=== PATIENT | male | born 1980 | race Caucasian/White ===

== ENCOUNTER 2017-10-08 18:17 | Emergency (ER) | payer MEDICARE, SELFPAY ==
[2017-10-08 18:18] VITALS: BP 145/89; PULSE 96; RESP 18; TEMP 36; O2SAT 94; BMI 38.2
--- NOTE | 2017-10-08 18:50 | ED.VISSUMM ---
- ER Visit Summary Date of Service: 10/08/17 Chief Complaint: [] History of Present Illness: The patient is a 37 M [back pain presents with back pain that started 5 days ago. Patient states that he was seeing a psychiatrist at the [facility] when he noticed some soreness in his low back that progressively worsened. Patient then had pain, radiating into both hips. Patient denies any trauma. Patient does have a history of some chronic back pain issues and his last MRI was about 3 years ago showed some herniated disks as well as spinal stenosis and degenerative disc disease. Patient has an appointment on the of this month to follow-up with CT rail car painter/sandblaster. Patient is never had surgery on his back. Patient denies any loss of bowel or bladder function. He denies any weakness in the extremities. He denies any pain radiating down the legs. Patient has not had any trauma to his back.] Physical Examination: [HEENT-PERRLA, EOMI. Cranial nerves II through XII grossly intact. TMs clear. Mucous membranes moist. No adenopathy. Cardiovascular-regular rate and rhythm without murmur or ectopy Lungs-clear to auscultation, chest wall stable without crepitus or subcu emphysema Abdomen-normoactive bowel sounds, soft, nontender, no rebound or rigidity, no peritoneal signs. Back exam-patient has tenderness palpation over the lumbar spine diffusely. Patient has negative straight leg raises. Deep tendon reflexes are plus out of 4 bilaterally at the patella and Achilles. Patient has normal L5 extension. Patient has normal sensation to light touch. Extremities-intact ?4, normal range of motion, normal pulses, atraumatic] Test Results: [None indicated] Emergency Department Course and Treatment: [Patient is driving therefore he was not medicated here] Treatment Plan: [Patient will be given a prescription for [place] and advised to keep his appointment with his rail car painter/sandblaster] Disposition: [Discharged home in stable condition] Impression: [Back pain-acute on chronic] This note was generated with [employer] dictation software. It may contain incorrect words, spelling, and punctuation that were not noted in review of the chart prior to signing ED Disposition - Plan for ED Patient: Chief Complaint: Back [facility]errals: [facility] [Primary Care Provider] -
--- NOTE | 2017-10-08 18:52 | ED.DEP ---
ED Disposition - Plan for ED Patient: Chief Complaint: Back Instructions: ED Neck Back Pain General Prescriptions: Hydrocodone/Acetaminophen [[place] 5-325 Tablet] 1 - 2 ea PO 4X/DAY PRN PRN 5 Days #20 tab PRN Reason: Pain Cyclobenzaprine [Flexeril] 10 mg PO TID PRN #20 tab PRN Reason: Muscle Spasm Referrals: [facility] [Primary Care Provider] - 5-7 Days
[2017-10-08 19:35] VITALS: BP 145/77; PULSE 62; RESP 15; O2SAT 98
== END 2017-10-08 19:36 | disposition home or self-care (01) ==
LOC: ED 19:10
PROVIDERS: Emergency Provider Emergency Medicine
DX: M54.5 Low back pain (principal); G89.29 Other chronic pain; M51.36 Other intervertebral disc degeneration, lumbar region; M48.061 Spinal stenosis, lumbar region without neurogenic claudication
CPT/HCPCS: 99282

== ENCOUNTER 2018-01-24 10:30 | Outpatient (RCR) | payer OTHER, MEDICARE, SELFPAY ==
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
--- NOTE | 2018-01-09 12:07 | HP.PTREVAL ---
MABLE GREGORY, It has been my pleasure to treat EBER MICHAEL over the last 9 visits for LBP. Please see the progress note below for an update on the physical therapy plan of care! Subjective: Not hurting. Feeling good. Sees chirpractor once per week. Stiffness in LB on daily basis not described as pain. Pool helps. Wants to progress to land based machine workout if approved. Objective/Function: Good AROM L/S, min limited in all directions and no pain today.. Walks well without deviations. SIGNIFICANTLY BETTER, APPROPRIATE TO CONTINUE FOR 2-3 WEEKS TO TEACH LAND BASED STRENGTHENING PATIENT DESIRES TO HELP MAINTAIN IMPROVEMENTS. Plan Plan: 2x/week for 2-4 weeks to teach machine based general and core strength and calorie burn without back pain and progress to I with list so patient can continue via [employer]. Goals Goal 1:: I approp HEP in pool to help minimize future problems Goal Time Frame: 4-6 Weeks Goal Progress: Goal Met Goal 2:: Pt feel 100% back to normal after recent LB flare up Goal Time Frame: 4-6 Weeks Goal Progress: Goal Met Goal 3:: Pt I with appropriate land based ex for general back health to minimize future problems. Goal Time Frame: 2-4 Weeks Goal Progress: NEW GOAL Anticipated Interventions Patient/Client Instruction: Educate patient on: Condition, Plan of Care For the Purpose of:: To decrease pain, To increase tolerance to activity/condition/position Therapeutic Exercise to Include: Strength training, Flexibilty training, In an aquatic setting, Dynamic Lumbar Stabilization For the Purpose of:: To increase tolerance to activity/condition/position Please do not hesitate to contact me at [phone] by phone or if you have questions or concerns regarding this new plan of care! Sincerely, Elian Jaime, DPT, OC
--- NOTE | 2018-03-14 13:38 | HP.PT.NRP ---
HP - Discharge Summary (1) - Patient Information EBER MICHAEL was seen in my office for initial evaluation on 12/09/17. The following Plan of Care was established for this patient: Initial Frequency: 2x /Week Initial Duration: 4 Weeks - Anticipated Interventions Patient/Client Instruction: Educate patient on: Condition, Plan of Care For the Purpose of:: To decrease pain, To increase tolerance to activity/condition/position Therapeutic Exercise to Include: Strength training, Flexibilty training, In an aquatic setting, Dynamic Lumbar Stabilization For the Purpose of:: To increase tolerance to activity/condition/position This patient was last seen in our office 01/24/18. Pertinent comments regarding their Physical therapy will appear below: Pt seen 10 visits of POC in pool and starting land therapy. He was to continue another 3 weeks but did not schedule or attend. I will discontinue at this time due to nonattendance as it has been over a month. At this point I will be discontinuing this patient from physical therapy. I would be happy to see this patient again in the future if found appropriate by the physician. Thank you! Elian Jaime, DPT, OCS, CSCS
== END 2018-01-24 19:00 | disposition home or self-care (01) ==
LOC: PT 10:30
DX: M54.5 Low back pain (principal)
CPT/HCPCS: 97110; 97113; 97162; 97530; G8978; G8979

== ENCOUNTER 2018-04-14 19:28 | Emergency (ER) | payer MEDICARE, SELFPAY ==
[2018-04-14 19:29] VITALS: BP 131/83; PULSE 97; RESP 20; TEMP 36.7; O2SAT 98; BMI 38.8
--- NOTE | 2018-04-14 19:32 | ED.RN ---
NO OLD EKGS IN MUSE
--- NOTE | 2018-04-14 19:37 | EKG12_ITS ---
Test Reason : CP Blood Pressure : / mmHG Vent. Rate : 092 BPM Atrial Rate : 092 BPM P-R Int : 180 ms QRS Dur : 094 ms QT Int : 358 ms P-R-T Axes : 058 016 014 degrees QTc Int : 442 ms Normal sinus rhythm Nonspecific T wave abnormality Abnormal ECG Confirmed by CRISTI VILLA, RAO ([id number]), electronic news gathering editor KATARINA VARGAS ([id number]) on 04/18/2018 8:16:07 AM Referred By: CHANTEL Confirmed By:RAO COLIN MD
--- NOTE | 2018-04-14 19:45 | RAD_ITS ---
STUDY: X-RAY CHEST REASON FOR EXAM: Male, 38 years old. Chest pain x2 days TECHNIQUE: Single frontal view of the chest. COMPARISON: None. FINDINGS: The lungs are clear and expanded. There is no demonstrated pleural abnormality. Normal size heart. Normal mediastinum and jb. Normal visualized pulmonary arteries. Normal visualized aortic arch and descending thoracic aorta. Normal visualized thoracic spine. Normal visualized ribs, clavicles, and shoulders. There is no demonstrated abnormality of the visualized soft tissue structures of the upper abdomen. RAD/Chest 1 View (Portable) IMPRESSION: Normal x-ray examination of the chest. Electronically Signed: Rudy Comer MD at 20:36 EST , Service support ,
[2018-04-14] MEDS: Aspirin 81 MG TAB.CHEW 324 MG PO (19:52)
[2018-04-14 19:53] LABS: Absolute Lymphocyte Count 2.44 X10^3/ul (0.83-4.51); Basophil# 0.04 X10^3/uL; Basophil% 0.4 % (0-1); Eosinophil# 0.19 X10^3/uL; Eosinophils% 1.9 % (0-5); Hemoglobin 15.1 g/dl (13.0-16.5); Lymphocyte # 2.44 X10^3/ul (4.0); Lymphocyte % 23.8 % (19-41); Mean Corp Hgb Conc 32.8 g/gl (32-36); Mean Corpuscular Hgb 28.4 pg (27.0-32.0); Mean Corpuscular Volume 86.6 fL (80-94); Mean Platelet Vol. 9.4 fl (6.2-12.0); Monocyte# 0.61 X10^3/uL; Monocyte% 5.9 % (0-10); Neutrophil # 6.95 X10^3/uL (2.7-7.7); Neutrophil % 67.7 % (47-70); Platelet Count 285 K/mm3 (150-450); RBC Distribution Width CV 12.8 % (11.6-14.6); RBC Distribution Width SD 40.6 fl (35.1-43.9); Red Blood Count 5.31 M/mm3 (4.6-6.2); White Blood Count 10.3 K/mm3 (4.4-11.0)
[2018-04-14] MEDS: 0.9% Normal Saline 1,000 ML 150 ML IV (19:53)
[2018-04-14 19:55] LABS: POSITIVE COUNT NO; POSITIVE DIFFERENTIAL NO; POSITIVE MORPHOLOGY NO
[2018-04-14 20:09] LABS: Anion Gap 6 (5-15); BUN 10 mg/dL (7-18); BUN/Creat Ratio 8.9 RATIO (10-20); Calcium,Total 8.7 mg/dL (8.5-10.1); Chloride 105 mmol/L (98-107); Creatinine, Serum 1.12 mg/dL (0.70-1.30); EST Glomerular Filtration Rate 78 mL/min (>60); Est Glom Filt Rate - Afr Amer 94 mL/min (>60); Estimated Creatinine Clearance 97.19 ml/min; Glucose 127 mg/dL (74-106); Potassium 3.8 mmol/L (3.5-5.1); Sodium Level 140 mmol/L (136-145)
--- NOTE | 2018-04-14 21:01 | ED.DCSUM_ITS ---
- ER Visit Summary Date of Service: 04/14/18 Chief Complaint: Chest pain History of Present Illness: The patient is a 38 M with no primary care physician. He reports he has chest pain that began yesterday. Some intermittent pain last 10-15 minutes at a time. States is happened 3-4 times. Describes as an aching pain is 510 at worst and is pain-free currently. Is worsened by nothing including exertion, movement of his arm or torso, breathing, or coughing. Is relieved with Zantac. He denies any associated nausea, vomiting, diaphoresis, or shortness of breath. Physical Examination: Vitals: Stable. Afebrile. General: Well-nourished and well-developed. Head: Normocephalic atraumatic. Neck: Supple, no lymphadenopathy. No JVD. Nontender. Cardiovascular: Regular rate and rhythm. No murmurs. Respiratory: No respiratory distress. Clear to auscultation bilaterally. Abdominal: Soft, nontender, nondistended, normal bowel sounds. No guarding, rebound, or peritoneal signs. Back: Nontender. Extremities: Nontender, no edema. Skin: Normal color, no rash. Neurologic: Alert and oriented ?3. Cranial nerves II through XII are intact. Normal strength and sensation. Psych: Normal affect. Test Results: EKG is sinus at [address] changes. There is a Q wave in lead III. There is no old EKG for comparison. Troponin is negative. Chem-7 is more for glucose 127. CBC is normal. Chest x-ray shows no acute disease. Emergency Department Course and Treatment: Patient was treated with aspirin. He is resting comfortably. Treatment Plan: Discussed patient at this time I do not have an explanation for his chest pain. I have offered to do a 3-hour troponin. However I feel it is very unlikely this is cardiac in etiology. If the episodes yesterday and earlier today were due to ischemia they have been greater than 3 hours already. He refused this. He will be discharged instructions from Dr. Bolden soon as possible. Return to the emergency department for any worsening symptoms. Disposition: To home in improved and stable condition. Impression: 1. Atypical chest pain. 2. KULDEEP score of 0. This note was generated with [employer] software. It may contain incorrect words, spelling, and punctuation that were not noted in review of the chart prior to signing ED Disposition - Plan for ED Patient: Disposition: Home or Assisted Living Instructions: ED Chest Pain Atypical Unkn Cause Referrals: Brittney Bolden MD [STAFF PHYSICIAN] - 1-2 Days if not improving
[2018-04-14 21:33] VITALS: BP 116/93; PULSE 79; RESP 18; O2SAT 99
--- NOTE | 2018-04-14 21:33 | ED.RN ---
THIS NURSE REVIEWED D/C INSTRUCTIONS WITH PT. PT VERBALIZED UNDERSTANDING OF INSTRUCTIONS. PT IV D/C. IV CATHETER INTACT. PT TOLERATED WELL. PT DENIES FURTHER NEEDS OR QUESTIONS AT THIS TIME
== END 2018-04-14 21:35 | disposition home or self-care (01) ==
LOC: ED 20:02
PROVIDERS: Emergency Provider Emergency Medicine
DX: R07.89 Other chest pain (principal); G47.33 Obstructive sleep apnea (adult) (pediatric); Z72.0 Tobacco use; Z79.899 Other long term (current) drug therapy
CPT/HCPCS: 71045; 80048; 84484; 85025; 93005; 96360; 96361; 99285; J7030; A4216

== ENCOUNTER → 2018-04-17 14:54 | Outpatient (CLI) | payer MEDICARE, SELFPAY ==
[2018-04-14 19:29] VITALS: BMI 38.8
[2018-04-17 15:15] LABS: Cholesterol 176 mg/dL (200); High Density Lipoprotein 25 mg/dL; Triglycerides 274 mg/dL; Very Low Density Lipoprotein 55 mg/dL (5-40)
== END ==
PROVIDERS: Referring Provider Family Medicine; Visit Provider Family Medicine
DX: Z13.220 Encounter for screening for lipoid disorders (principal)
CPT/HCPCS: 80061

== ENCOUNTER 2018-05-18 14:39 | Emergency (ER) | payer MEDICARE, SELFPAY ==
[2018-05-18 14:41] VITALS: BP 132/67; PULSE 102; RESP 20; TEMP 36.7; O2SAT 97; BMI 37.1
--- NOTE | 2018-05-18 15:33 | ED.VISSUMM ---
- ER Visit Summary Date of Service: 05/18/18 Chief Complaint: Back pain History of Present Illness: The patient is a 38 M with chronic recurrent back pain. This is been ongoing for at least 6 months he has been treated by a chiropractor. He has no fever chills he has radiation into his right leg. He has no bowel or bladder compromise no symptoms of urinary retention. He has no suprapubic pain. Physical Examination: Otherwise normal exam he has spinal paraspinal tenderness to the right in the lumbar region. He has a positive straight leg test. He has normal plantar flexion of both feet and normal dorsiflexion of both great toes. He has no foot drop. He has normal reflexes that are equal bilaterally both in the patellar and Achilles regions. Emergency Department Course and Treatment: Patient has only been seen by chiropractor I encouraged him to follow-up with PCP for further testing especially that he has sciatic symptoms, may need an outpatient MRI. He will be treated with analgesia and muscle relaxants. Disposition: [Discharge stable condition] Impression: Back pain Sciatica This note was generated with [employer] dictation software. It may contain incorrect words, spelling, and punctuation that were not noted in review of the chart prior to signing ED Disposition - Plan for ED Patient: Disposition: Home or Assisted Living Instructions: ED Low Back Pain Injury Prescriptions: Hydrocodone Bitart/Apap 5-325 [[place] 5MG-325MG] 1 tab PO Q4H PRN PRN 2 Days #10 tab PRN Reason: Pain Prednisone [Deltasone] 60 mg PO DAILY #15 tab Referrals: Christophe Chinchilla III, MD [Primary Care Provider] -
--- NOTE | 2018-05-18 15:37 | ED.DCSUM_ITS ---
- ER Visit Summary Date of Service: 05/18/18 Chief Complaint: Back pain History of Present Illness: The patient is a 38 M with chronic recurrent back pain. This is been ongoing for at least 6 months he has been treated by a chiropractor. He has no fever chills he has radiation into his right leg. He has no bowel or bladder compromise no symptoms of urinary retention. He has no suprapubic pain. Physical Examination: Otherwise normal exam he has spinal paraspinal tenderness to the right in the lumbar region. He has a positive straight leg test. He has normal plantar flexion of both feet and normal dorsiflexion of both great toes. He has no foot drop. He has normal reflexes that are equal bilaterally both in the patellar and Achilles regions. Emergency Department Course and Treatment: Patient has only been seen by chiropractor I encouraged him to follow-up with PCP for further testing especially that he has sciatic symptoms, may need an outpatient MRI. He will be treated with analgesia and muscle relaxants. Disposition: [Discharge stable condition] Impression: Back pain Sciatica This note was generated with [employer] dictation software. It may contain incorrect words, spelling, and punctuation that were not noted in review of the chart prior to signing ED Disposition - Plan for ED Patient: Disposition: Home or Assisted Living Instructions: ED Low Back Pain Injury Prescriptions: Hydrocodone Bitart/Apap 5-325 [[place] 5MG-325MG] 1 tab PO Q4H PRN PRN 2 Days #10 tab PRN Reason: Pain Prednisone [Deltasone] 60 mg PO DAILY #15 tab Referrals: Christophe Chinchilla III, MD [Primary Care Provider] -
[2018-05-18] MEDS: Ketorolac 30 MG/ML Syringe IM (15:50)
[2018-05-18] MEDS: Orphenadrine 60 MG/2 ML Ampul IM (15:50)
== END 2018-05-18 16:12 | disposition home or self-care (01) ==
PROVIDERS: Emergency Provider Emergency Medicine; Family Provider Family Medicine; PCP Family Medicine
DX: M54.41 Lumbago with sciatica, right side (principal)
CPT/HCPCS: 96372; 99282

== ENCOUNTER → 2018-12-02 | Outpatient (CLI) | payer MEDICARE, SELFPAY | END | disposition home or self-care (01) | PROVIDERS: Family Provider Family Medicine; PCP Family Medicine; Referring Provider Physician Assistant; Visit Provider Physician Assistant | DX: J02.9 Acute pharyngitis, unspecified (principal) | CPT/HCPCS: 87070 ==

== ENCOUNTER 2019-05-05 13:03 | Emergency (ER) | payer MEDICARE, SELFPAY ==
[2019-05-05 13:04] VITALS: BP 153/76; PULSE 89; RESP 16; TEMP 36.6; O2SAT 95; BMI 39.4
== END 2019-05-05 16:32 | disposition left against medical advice (07) ==
LOC: ED 15:26
PROVIDERS: Emergency Provider Emergency Medicine; PCP Family Medicine
DX: M54.5 Low back pain (principal)

== ENCOUNTER 2019-05-07 11:36 | Emergency (ER) | payer MEDICARE, SELFPAY ==
[2019-05-07 11:36] VITALS: BP 125/89; PULSE 75; RESP 16; TEMP 36.6; O2SAT 99; BMI 39.2
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
[2019-05-07] MEDS: Orphenadrine 60 MG/2 ML Ampul IM (13:12)
[2019-05-07] MEDS: Ketorolac 60 MG/2 ML Vial IM (13:12)
[2019-05-07 13:45] VITALS: RESP 16
--- NOTE | 2019-05-07 13:46 | ED.RN ---
REVIEWED D/C INSTRUCTIONS, FOLLOW UP CARE, PRESCRIPTIONS, AND S/S THAT WOULD WARRANT A RETURN TO THE ED WITH PT. PT VERBALIZED AN UNDERSTANDING AND DENIES FURTHER QUESTIONS FOR THIS RN. PT SKIN P/W/D, RESP EVEN AND UNLABORED, PT A&O X 3, NO DISTRESS NOTED. PT AMBULATED OUT OF ED, GAIT STEADY.
== END 2019-05-07 13:48 | disposition home or self-care (01) ==
PROVIDERS: Emergency Provider Emergency Medicine; PCP Family Medicine
DX: M46.1 Sacroiliitis, not elsewhere classified (principal)
CPT/HCPCS: 96372; 99282

== ENCOUNTER 2023-04-15 11:00 | Outpatient (RCR) | payer OTHER, SELFPAY ==
--- NOTE | 2023-01-07 19:33 | HP.PTEVAL ---
Patient's Visit Information Visit Information Visit Information: EBER MICHAEL is a 43 year old M referred to Physical Therapy by SEFERINO SAGASTUME with a diagnosis of LOW BACK AND HIP PAIN. Date of Evaluation: 01/07/23 Physical Therapist: Yesenia Hicks PT, Cert MDT Visit Plan Frequency: 2-3x /Week Duration: 4-6 Weeks Plan: Aquatic Therapy: Neutral Spine Core Stability Exercises and Belem LE Hip Flexor, Hamstring to help reduce stress to the Lumbar Spine with all Daily Activities. Belem LE Strengthening. Instruction in Proper Posture Control, Body Mechanics, and Appropriate Activity Modifications. HEP Instruction. 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 PRIOR TO THIS UNEMPLOYEED X APPROX 10 YEARS. Disability: YES - BACK PAIN - SINCE 2013 Present symptoms: LOW BACK PAIN L>R. R HIP > L. R THIGH, R KNEE/LEG, R FOOT TO BIG TOE. BELEM TOE NUMBNESS AND TINGLING L>R. Present since: APPROX 2005 Pain Scale: WORST 9/10, LEAST 1-2/10 Currently: 3/10 Is it getting better, worse or staying the same: STAYING THE SAME BUT MY MUSCLES ARE ALL LOCKED UP FROM WORKING THIS PAST WEEK. Commenced as a result of: CAME DOWN ON L ANKLE WRONG DURING PT DURING SERVICE. Symptoms at onset: L FOOT PAIN Worse: HEAVY LIFTING Better: AQUATIC THERAPY IN THE PAST. Disturbed sleep: NO Previous history/Previous treatment: NO BACK SURGERY. R HIP CORTISONE SHOTS, 3 OR 4, FOR BURSITIS. AQUATIC THERAPY HERE AT IN THE PAST YEARS AGO. CHIROPRACTIC FOR YEARS NEEDED WITH MOST RECENT VISIT BEING A WK AGO - DOESN'T REALLY HELP THE PAIN BUT HELPS KEEP HIM MOBILE. WENT TO PAIN MGMT AND TRIED TRAMADOL IN THE PAST ALSO. Treatment this episode: NONE. FIRST MASSAGE THERAPY OLGA'T PENDING NEXT SATURDAY. Coughing/sneezing/straining: NEGATIVE. Gait: CAN PUSH THROUGH THE PAIN AT WORK AND THEN DOESN'T DO A LOT OF WALKING AFTER WORK. NO FALLS. NO AD'S. Bowel or Bladder Dysfunction: NO Accidents: UNREMARKABLE. Unexplained weight loss: LOST 55 LBS THIS YEAR SINCE MAR 2022 ON PURPOSE. Imaging: RECENT LUMBAR [place] BUT PATIENT UNSURE OF RESULTS BUT PATIENT REPORTS KNOWLEDGE OF DDD FROM IMAGING IN THE PAST. PMH/Recent major surgery: ANXIETY ATTACK IN MAR 2022. L HEEL LIFT. SLEEP APNEA. MAJOR DEPRESSIVE DISORDER. DEGENERATIVE ARTHRITIS OF THE SPINE. DISABILITY RATINGS FOR KNEES AND ANKLES FOR [facility] PER PATIENT REPORT. 2 L ANKLE FUSIONS 2006 AND 2007. Objective Objective: Sitting/Standing Posture: L ILIAC CREST SLIGHTLY LOWER THAN R AND WEARING L SHOE LIFT/ELEVATION (7/8 IN). DECREASED LORDOSIS. SCOLIOSIS. Active Correction of posture: NE. Other Observations: THIS PATIENT AMBULATES INDEP'LY INTO PT WITH MILD LIMP ON L LE. NO LOB. NO AD'S. INDEP TRANSFER SIT TO STAND WITHOUT UE ASSIST BUT DIFFICULT. Sensory deficit: BELEM LE LIGHT TOUCH SENSATION GROSSLY INTACT AND SYMMETRICAL INCLUDING LEFT FOOT. ROM deficit: BELEM HIP FLEXOR AND HS TIGHTNESS. R KNEE FLEXION 126 DEG. L KNEE FLEX 120 DEG. Motor deficit: R HIP 4/5, KNEE 5/5, ANKLE 5/5. L HIP 4-/5, KNEE 4-/5, ANKLE DORSI 5/5, PLANTAR 3-/5. Dural Signs: NEGATIVE BELEM LE'S. Lumbar mvmt loss: flex - MOD - INCREASES LBP - NW ext - MOD - R THIGH AND LEG PAIN POSTERIOR - NW R SG - MOD - L HIP PAIN - NW L SG - MOD - R HIP PAIN - NW Core strength: FAIR TREATMENT: NEUROMUSCULAR REEDUCATION - RETRAINING OF MVMT AND POSTURE FOR SITTING, LYING AND STANDING ACTIVITIES. Balance/Special Test Scores Oswestry Low Back Score: 4 Goals Goal 1:: Patient will have increased BLE and core strength increased by 1/2 grade of hip musculature. Goal Time Frame: 4-6 Weeks Goal 2:: Patient will be indep with home and water ex programs for continued improvement once formal physical therapy concludes. Goal Time Frame: 4-6 Weeks Rehabilitation Potential Physical Therapy Diagnosis: LOW BACK AND HIP PAIN. CORE AND HIP WEAKNESS. TRUNK AND LE STIFFNESS. Rehabilitation Potential: Fair Anticipated Interventions Patient/Client Instruction: Educate patient on: Condition, Plan of Care and Risk Factors For the Purpose of:: To improve self management Therapeutic Exercise to Include: Strength training, Body mechanics, Postural training, Flexibilty training, Neuromotor development, In an aquatic setting and Dynamic Lumbar Stabilization For the Purpose of:: To increase ROM, To improve muscle performance and motor function, To increase tolerance to activity/condition/position and To improve ability of physical actions for home/community/work/leisure Text: Thank you for the opportunity to evaluate your patient. For Medicare and Medicare HMO plans, please review the plan of care and approve it. It will need to be FAXED BACK to us at [phone] for Medicare purposes. For Medicare only, by signing this I certify the plan of care. Please let me know if there are questions or concerns regarding this plan of care. Physician Signature: Date:
--- NOTE | 2023-06-10 19:29 | HP.PT.NRP ---
Patient Information Patient Information: EBER MICHAEL was seen in my office for initial evaluation on 01/07/23. The following Plan of Care was established for this patient: POC Established Initial Frequency: 2-3x /Week Initial Duration: 4-6 Weeks Anticipated Interventions Patient/Client Instruction: Educate patient on: Condition, Plan of Care and Risk Factors For the Purpose of:: To improve self management Therapeutic Exercise to Include: Strength training, Body mechanics, Postural training, Flexibilty training, Neuromotor development, In an aquatic setting and Dynamic Lumbar Stabilization For the Purpose of:: To increase ROM, To improve muscle performance and motor function, To increase tolerance to activity/condition/position and To improve ability of physical actions for home/community/work/leisure Last Seen Last Seen: This patient was last seen in our office 04/15/23. Pertinent comments regarding their Physical therapy will appear below: This patient has not returned to Physical Therapy and is appropriate to return to MD for further follow-up as needed. At this point I will be discontinuing this patient from physical therapy. I would be happy to see this patient again in the future if found appropriate by the physician. Thank you! Yesenia Hicks, PT, Cert MDT Balance/Gait/Functional tests Balance/Special Test Scores Oswestry Low Back Score: 4
== END 2023-04-15 19:00 | disposition home or self-care (01) ==
LOC: PT 11:00
DX: M54.50 Low back pain, unspecified (principal); M25.559 Pain in unspecified hip
CPT/HCPCS: 97113; 97162

== ENCOUNTER 2023-11-17 12:05 | Emergency (ER) | payer OTHER, SELFPAY ==
[2023-11-17 12:06] VITALS: BP 154/111; PULSE 86; RESP 16; TEMP 36.4; O2SAT 98; BMI 33.5
[2023-11-17 14:05] VITALS: BP 141/100; PULSE 82; RESP 18; O2SAT 95
--- NOTE | 2023-11-17 14:23 | US_ITS ---
STUDY: SCROTUM ULTRASOUND REASON FOR EXAM: Male, 43 years old. right testicular pain TECHNIQUE: Ultrasound evaluation of the scrotum was performed with color Doppler and static zepeda-scale imaging. COMPARISON: None. FINDINGS: RIGHT TESTICLE INTRATESTICULAR: There is a normal size of the right testicle. The right testicle measures 5 x 3.6 x 2.9 cm. There is a homogenous echotexture. There is normal arterial and normal venous vascularity. There is no demonstrated right testicular mass or cyst. EXTRATESTICULAR: The epididymis is normal in size. The epididymis head measures 1.1 x 1.8 cm. There is normal vascularity of the epididymis. There is no demonstrated epididymal cystic structure. There is no demonstrated hydrocele. There is no demonstrated varicocele. There is no demonstrated extratesticular mass or cyst. LEFT TESTICLE INTRATESTICULAR: There is a normal size of the left testicle. The left testicle measures 5.2 x 3.1 x 2.9 cm. There is a homogenous echotexture. There is normal arterial and normal venous vascularity. There is no demonstrated left testicular mass or cyst. EXTRATESTICULAR: The epididymis is normal in size. The epididymis head measures 1.7 x 0.8 x 0.9 cm. There is normal vascularity of the epididymis. There is no demonstrated epididymal cystic structure. There is no demonstrated hydrocele. There is no demonstrated varicocele. There is no demonstrated extratesticular mass or cyst. US/Testicular with Arterial Flow IMPRESSION: No torsion. Electronically Signed: Andrei Abbott MD at 16:10 EDT ,
--- NOTE | 2023-11-17 14:36 | EX.ED.GUMALE ---
HPI History of Present Illness Chief Complaint: Male Pain/Injury PFSH PFS Medical History no medical history Home Medications ?Medication ?Instructions ?Recorded ?Last Taken ?Type Ranitidine [Zantac] 150 mg PO DAILY 07/02/16 Unknown History ketorolac 10 mg tablet 10 mg PO Q8H PRN pain #15 tabs 05/07/19 Unknown Rx prednisone 10 mg tablet 10 mg PO UD #33 tabs 05/07/19 Unknown Rx Allergy/AdvReac Type Severity Reaction Status Date / Time varenicline tartrate (From Allergy SUICIDAL Verified 11/17/23 12:06 Chantix) THOUGHTS Family History no significant family his Surgical History (Updated 11/17/23 @ 13:57 by Tab Yañez) H/O vasectomy Social History Smoking Status: Current every day smoker tobacco type: e-cigarettes EXAM Physical Exam Const Vital Signs: 11/17/23 12:06 11/17/23 14:05 11/17/23 16:00 Temperature 97.6 F L Temperature Source Temporal Pulse Rate 86 82 85 Respiratory Rate 16 18 18 Blood Pressure 154/111 H 141/100 H 165/106 H Blood Pressure Mean 125 113 125 Pulse Ox 98 95 97 Oxygen Delivery Method Room Air Room Air Room Air MDM MDM MDM Narrative Medical decision making narrative: I have personally performed a face to face assessment of the patient and have reviewed the OLGA Note. I performed a substantive portion of the visit including all aspects of the following. My ritter findings include: History is [patient presents to the emergency department with discomfort in his right scrotum. Patient states that he felt a lump starting Saturday as he developed some pain in that area. 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 Some mild discomfort with moving. Has had no nausea or vomiting. Denies abdominal pain. He denies urinary symptoms. He has had prior vasectomy.] Exam is [HEENT-PERRLA, EOMI. Cranial nerves II through XII grossly intact. TMs clear. Mucous membranes moist. No adenopathy. Cardiovascular-regular rate and rhythm without murmur or ectopy Lungs-clear to auscultation, chest wall stable without crepitus or subcu emphysema Abdomen-normoactive bowel sounds, soft, nontender, no rebound or rigidity, no peritoneal signs. exam-no testicular tenderness on exam. No tenderness over the epididymis. In the spermatic cord leading up into the inguinal canal there is a small firm indurated area measuring approximately a centimeter in diameter that slightly tender to palpation. No hernias palpated. Extremities-intact ?4, normal range of motion, normal pulses, atraumatic] Medical Decison Making [patient with pain to right testicle with small mass in area of spermatic cord. Will obtain an ultrasound to evaluate further.] Ultrasound essentially unremarkable and CT scan of the abdomen pelvis also obtained showed fat-containing inguinal hernia and umbilical hernia without evidence of incarceration otherwise no acute abnormalities. Patient will be discharged to home with referral to urology as etiology of the small mass uncertain I suspect may be as the cystic structure in the spermatic cord. Also will refer to general surgery regarding the hernias although I do not feel these are the source of his pain. Other additions or changes: [None] Radiography Diagnostic Testing: Clinical Impression(s) from Imaging Studies Testicular Ultrasound 11/17/23 14:23 IMPRESSION: No torsion. Electronically Signed: Andrei Abbott MD at 16:10 EDT , Abdomen/Pelvis CT 11/17/23 16:18 IMPRESSION: (NOT LISTED IN ORDER OF SIGNIFICANCE) Right inguinal hernia containing fat. There is an umbilical hernia containing fat Non obstructive 2 mm left renal parenchymal stones. Other findings as above. Electronically Signed: Andrei Abbott MD at 16:56 EDT , Discharge Plan Triage Chief Complaint: Male Pain/Injury ED Midlevel Provider: Josh High ED Provider: Jocelyne Dodson Dx/Rx/DC Orders Prescriptions: No Action Ranitidine [Zantac] 150 MG tablet 150 mg PO DAILY ketorolac 10 MG tablet 10 mg PO Q8H PRN (Reason: pain) Qty: 15 0RF prednisone 10 MG tablet 10 mg PO UD Qty: 33 0RF Rx Instructions: Take 4 tablets daily for 3 days, then 3 daily for 3 days, then 2 daily for 3 days, then 1 a day for 3 days then 1 QOD for 3 doses. Primary Care Provider: Earl Bernal Referrals: Earl Bernal MD [Primary Care Provider] - Print Language: Occitan
--- NOTE | 2023-11-17 15:05 | EX.ED.DYSGE1 ---
HPI History of Present Illness Chief Complaint: Male Pain/Injury Narrative Narrative: Patient is a 43-year-old male with no sniffing medical history presents to the emerged part with 2 to 3 days of right testicular pain. 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 Patient states there is a specific spot just above his testicle that is painful. He denies any significant swelling, he denies any injury. Patient denies any fever or chills. Denies any surgeries to his scrotum, no difficulty urinating. PFSH PFSH Medical History no medical history Home Medications ?Medication ?Instructions ?Recorded ?Last Taken ?Type Ranitidine [Zantac] 150 mg PO DAILY 07/02/16 Unknown History ketorolac 10 mg tablet 10 mg PO Q8H PRN pain #15 tabs 05/07/19 Unknown Rx prednisone 10 mg tablet 10 mg PO UD #33 tabs 05/07/19 Unknown Rx ibuprofen 600 mg tablet 600 mg PO Q6H PRN PRN pain #20 11/17/23 Unknown Rx TABLETS Allergy/AdvReac Type Severity Reaction Status Date / Time varenicline tartrate (From Allergy SUICIDAL Verified 11/17/23 12:06 Chantix) THOUGHTS Family History no significant family his Surgical History (Updated 11/17/23 @ 13:57 by Tab Yañez) H/O vasectomy Social History Smoking Status: Current every day smoker tobacco type: e-cigarettes ROS ROS ED ROS Narrative Constitutional: Negative for fever, chills, weight loss, weakness Eyes: Negative for vision loss, vision change, double vision ENT: Negative for any sore throat, ear pain, congestion Cardiovascular: Negative for any chest pain, tightness, palpitations Respiratory: Negative for any cough, sputum production, hemoptysis, dyspnea, dyspnea on exertion, orthopnea Gastrointestinal: Negative for any abdominal pain, nausea, vomiting, diarrhea, constipation, blood in stool, blood in vomit : Negative for any urinary frequency, dysuria, retention, blood in urine. Positive for right testicular pain Muscle skeletal: Negative for any neck pain, back pain Neurological: Negative for any headache, syncope, dizziness Skin: Negative for any rashes, itching, abrasions, lacerations Psychiatric: Negative for any depression, anxiety, stress, suicidal ideation, homicidal ideation Hematologic: Negative for any excessive bruising, easy bleeding EXAM Physical Exam Narrative Exam Narrative: Vital signs reviewed. HEET: Head normocephalic atraumatic, TMs clear bilaterally. Posterior pharynx is clear, moist mucous membranes. Nares clear bilaterally. Neck: Supple with no lymphadenopathy or tenderness. No signs of meningismus. Cardiac: Regular rate and rhythm no murmurs gallops or rubs, equal peripheral pulses bilaterally. Respiratory: Lungs clear to auscultation bilaterally. No chest tenderness. Abdomen: Soft, nontender, nondistended. No abdominal bruit or pulsatile masses. No hepatosplenomegaly Extremities: No peripheral edema, no signs of gross trauma or deformity. Active full range of motion of all extremities. Neuro: Cranial nerves II through XII intact, no focal neurological deficits. Skin: Clean dry and intact with no rash, purpura, petechiae, vesicles or pustules. Backs/flank: No CVA tenderness, no midline spinal tenderness, no deformity. Psych: Normal mood and affect. No SI, HI or acute psychosis. : Patient's testicles are not painful, the pain has a pinpoint area of pain, on my evaluation on deep palpation, there is a cordlike substance that is hard that is causing him pain. Const Vital Signs: 11/17/23 12:06 11/17/23 14:05 11/17/23 16:00 Temperature 97.6 F L Temperature Source Temporal Pulse Rate 86 82 85 Respiratory Rate 16 18 18 Blood Pressure 154/111 H 141/100 H 165/106 H Blood Pressure Mean 125 113 125 Pulse Ox 98 95 97 Oxygen Delivery Method Room Air Room Air Room Air MDM MDM Radiography Diagnostic Testing: Clinical Impression(s) from Imaging Studies Testicular Ultrasound 11/17/23 14:23 IMPRESSION: No torsion. Electronically Signed: Andrei Abbott MD at 16:10 EDT , Abdomen/Pelvis CT 11/17/23 16:18 IMPRESSION: (NOT LISTED IN ORDER OF SIGNIFICANCE) Right inguinal hernia containing fat. There is an umbilical hernia containing fat Non obstructive 2 mm left renal parenchymal stones. Other findings as above. Electronically Signed: Andrei Abbott MD at 16:56 EDT , Treatment and Re-Evaluation :: Differential diagnosis includes however is not limited to: Torsion, inguinal hernia, epididymitis Patient presents to the emerged department with 2 to 3 days of right testicular pain. Patient's physical examination does not yield any red flag signs, I have low suspicion for any torsion. Patient denies any concern for STD. Urinalysis will be obtained, patient will receive a ultrasound of his testicles and blood flow. All radiologic examinations were read, reviewed by the emergency department attending. From these reads, a plan of care will be put in place. Patient's ultrasound shows no torsion, the epididymis is normal size, there is no acute process. There is no demonstrated varicocele. There is no demonstrated extratesticular mass or cyst. Secondary this finding, patient will receive a CT scan of the abdomen pelvis Patient CT scan shows a right inguinal hernia containing fat, and there is umbilical hernia containing fat, nonobstructive 2 mm left renal parenchymal stones. No other acute process. At this time, patient be given a prescription for ibuprofen. Patient will follow-up with Mohit, as well as Becky. Patient is agreeable with the plan. Will follow-up outpatient Discharge Plan Triage Chief Complaint: Male Pain/Injury ED Midlevel Provider: Josh High ED Provider: Jocelyne Dodson Dx/Rx/DC Orders Clinical Impression: Pain in right testicle, Hernia, umbilical Instructions: How a Hernia Develops, ED Hernia (Adult), ED Testicular Pain, Unclear Cause Prescriptions: New ibuprofen 600 mg tablet 600 mg PO Q6H PRN PRN (Reason: pain) Qty: 20 0RF No Action Ranitidine [Zantac] 150 MG tablet 150 mg PO DAILY ketorolac 10 MG tablet 10 mg PO Q8H PRN (Reason: pain) Qty: 15 0RF prednisone 10 MG tablet 10 mg PO UD Qty: 33 0RF Rx Instructions: Take 4 tablets daily for 3 days, then 3 daily for 3 days, then 2 daily for 3 days, then 1 a day for 3 days then 1 QOD for 3 doses. Primary Care Provider: Earl Bernal Referrals: Rafal Rueda MD [Med Staff - Active Staff] - Shelly Pena MD [Med Staff - Active Staff] - Earl Bernal MD [Primary Care Provider] - Activity Restrictions/Additional Instructions: Please continue to use ibuprofen. I have given you to doctors to follow-up with Print Language: Spanish Disposition Disposition: Home, Self Care
[2023-11-17] MEDS: Ibuprofen 600 MG Tablet PO (15:09)
[2023-11-17 16:00] VITALS: BP 165/106; PULSE 85; RESP 18; O2SAT 97
--- NOTE | 2023-11-17 16:18 | CT_ITS ---
STUDY: CT Abdomen And Pelvis W/O Contrast Injection 11/17/2023 4:52 PM REASON FOR EXAM: Male, 43 years old. ABDOMINAL PAIN right inguinal mass TECHNIQUE: Transaxial images were obtained without oral contrast, and without intravenous contrast. Individualized dose optimization techniques were used for this CT. COMPARISON: None FINDINGS: The visualized lung bases are unremarkable. The visualized portions of the heart are within normal limits. There are hypodensities of the liver. These maybe cysts but are indeterminate and other etiologies are not excluded. These may be cysts or hemangiomas. Unremarkable gallbladder and extrahepatic biliary system. Unremarkable spleen. Unremarkable pancreas. Unremarkable bilateral adrenal glands. No acute findings of the right kidney. Non obstructive 2 mm left renal parenchymal stones. Unremarkable visualized stomach. Unremarkable small intestine. Unremarkable colon. The appendix is visualized and appears unremarkable. There are no acute findings of the abdominal aorta. Unremarkable inferior vena cava. Subcentimeter mesenteric lymph nodes. Unremarkable urinary bladder. Right inguinal hernia containing fat. There is an umbilical hernia containing fat. There are bilateral pars articularis defects at L5-S1. CT/Abdomen/Pelvis without Cont IMPRESSION: (NOT LISTED IN ORDER OF SIGNIFICANCE) Right inguinal hernia containing fat. There is an umbilical hernia containing fat Non obstructive 2 mm left renal parenchymal stones. Other findings as above. Electronically Signed: Andrei Abbott MD at 16:56 EDT ,
== END 2023-11-17 17:19 | disposition home or self-care (01) ==
PROVIDERS: Emergency Provider Emergency Medicine; PCP Family Medicine; Visit Provider Emergency Medicine
DX: N50.811 Right testicular pain (principal); K42.9 Umbilical hernia without obstruction or gangrene; K40.90 Unilateral inguinal hernia, without obstruction or gangrene, not specified as recurrent; F17.290 Nicotine dependence, other tobacco product, uncomplicated
CPT/HCPCS: 74176; 76870; 93976; 99282

== ENCOUNTER → 2023-11-25 | Outpatient (CLI) | payer MEDICARE, SELFPAY | END | disposition home or self-care (01) | LOC: LABSPEC 11:41 | PROVIDERS: PCP Family Medicine; Referring Provider Surgery; Visit Provider Surgery | DX: Z01.818 Encounter for other preprocedural examination (principal); K42.9 Umbilical hernia without obstruction or gangrene; K40.90 Unilateral inguinal hernia, without obstruction or gangrene, not specified as recurrent | CPT/HCPCS: 87077; 87081 ==

== ENCOUNTER 2024-01-20 05:50 | Day surgery (SDC) | payer MEDICARE, SELFPAY ==
--- NOTE | 2024-01-14 07:43 | EKG12_ITS ---
Test Reason : PREOP Blood Pressure : */* mmHG Vent. Rate : 72 BPM Atrial Rate : 72 BPM P-R Int : 188 ms QRS Dur : 96 ms QT Int : 404 ms P-R-T Axes : 67 28 14 degrees QTcB Int : 442 ms Normal sinus rhythm Normal ECG Confirmed by CRISTI VILLA, RAO ([id number]), material expeditor CLEMENTE SULTANA ([id number]) on 01/15/2024 8:48:39 AM Referred By: Raul Millan Confirmed By: RAO COLIN MD
[2024-01-20] VITALS (11 sets, daily range): BP systolic 126–178; BP diastolic 81–106; PULSE 69–92; RESP 16–18; TEMP 36.2–36.8; O2SAT 92–98; BMI 35.1
--- NOTE | 2024-01-20 | LIP_PTH ---
PATIENT: DREW MICHAEL LOC: [facility] [place] U#:[id number] AGE/SX: 44/M ROOM: RE01/20/[address]: Dr. Raul Millan MD : 1980 BED: DIS: 01/20/2024 SPEC #: [id number] RECD: 01/20/24 13:34 STATUS: KELSIE GOODEN #: [id number] [place]: 01/20/24 00:[address]: Raul Millan DEPT: SURGICAL PATHOLOGY RECD BY: Drew Ding ENTERED: 01/20/24 13:34 SP TYPE: LIPOMA OTHR DR: Dr. Earl Bernal MD Tissues: Soft tissues, NOS Procedures: Surgery Specimen Level III HEADER OPERATION: Laparoscopic robotic right inguinal hernia with mesh PRE-OP DIAGNOSIS: Inguinal hernia TISSUE SUBMITTED: Cord of lipoma MICROSCOPIC DIAGNOSIS Cord of lipoma, excision: Mature adipose tissue, consistent with lipoma. SJ.mr 01/21/2024 MICROSCOPIC DESCRIPTION Slides are reviewed. GROSS DESCRIPTION Received in fixative is one container labeled with the patient's name and designated Cord of lipoma. The specimen consists of a piece of yellow adipose tissue measuring 6.2 x 1.5 x 1.0cm. Sections reveal yellow adipose cut surfaces without area of hemorrhage, necrosis or cystic degeneration. Dam Tender Assistant sections are submitted in two cassettes. 01/20/2024 TC:1 CPT:80294
[2024-01-20] MEDS: Lactated Ringers 1,000 ML 15 ML IV ×2 (06:32→11:28)
--- NOTE | 2024-01-20 06:58 | PCM.HP.BLA ---
History and Physical Date of Admission: 01/20/24 Date of Service: 11/25/23 MR#: [id number] Acct: [id number] Name: EBER BENNETT Rep #: [id number] : 1980 Provider: Dr. Raul Millan MD Age/Sex: 43/M Location: [facility] Status: Signed Intake Vital Signs 11/17/2411:06 11/24/2409:13 Height 6 ft 6 ft Weight: 254 lb 4 oz BMI 34.4 BP 134/93 H Blood Pressure Location Rt brachial Position Sitting Respiration 18 Pulse 72 Pulse Source Monitor Temp 97.5 F L Temp Source Temporal Pulse Oximetry (%) 97 Oxygen Delivery Method room air Intake Visit Reasons: ED FOR HERNIA 9 Chief Complaint: ED FOR HERNIA 915 Is patient in pain?: No Allergies varenicline tartrate (From Chantix) Allergy (Verified 11/25/23 10:14) SUICIDAL THOUGHTS PFSH Medical History (Updated 11/25/23 @ 16:[address] Raul Millan MD) Umbilical hernia Inguinal hernia Surgical History (Updated 11/17/23 @ 13:57 by Tab Yañez) H/O vasectomy Social History (Updated 11/25/23 @ 10:13 by Radha Orozco LPN) Smoking Status: Current every day smoker tobacco type: e-cigarettes alcohol intake: current alcohol intake frequency: holidays/special occasions only substance use type: does not use HPI HPI HPI: Patient is a 43-year-old male who presents for newly diagnosed right inguinal hernia. This finding was first noticed by radiology during recent ER workup on CT imaging that followed a scrotal ultrasound. Mr. Bennett states that he was evaluated in our emergency department 11/17/2023 after developing pain in his scrotum on 11/15/2023 that never fully remitted. 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 In addition to this pain he describes some swelling of the right testicle and a knot that has persisted even to this day. Mr. Bennett reports that overall his acute pain is improved but he still feels it at a minimal intensity. Mr. Bennett denies any changes to his bowel habits In addition to the above inguinal hernia, Mr. Bennett states that he was made aware that radiology called a umbilical hernia, but insists that he has not had any discomfort from the site. Patient has a remote personal history of smoking and shares it has been 10 years since his last use of tobacco. Mr. Bennett has no personal history of staph, however, he gestures to the back of his neck where there is clear evidence of a cutaneous irritation which she states occurs after haircuts. Pertinent surgical history includes: None ROS General General: No weight change, appetite, fatigue, colon cancer, breast cancer or weakness HEENT HEENT: No difficulty swallowing, eye injury, eye surgery, swollen glands or hoarseness Endo Endocrine: No thyroid disease, diabetes mellitus, thyroid cancer, Hair loss, heat intolerance or cold intolerance Skin Skin: No rash or changing moles Musc Musculoskeletal: Yes arthritis; No back problems, rheumatoid arthritis, gout or joint pain Cardio Cardiovascular: Yes high blood pressure; No murmur, pacemaker, heart disease, atrial fibrillation, heart attack, heart stent, palpitations, shortness of breat with exertion or chest pain Psych Psychiatric: No depression, anxiety or hearing voices Resp Respiratory: No shortness of breath, Yes sleep apnea, No cough, No COPD, No asthma, No emphysema and No wheezing Gastro Gastrointestinal: No abdominal pain, No nausea or vomiting, No diarrhea, No constipation, No blood in stool, No acid reflux, No hemorrhoids, No ulcers, No gallbladder problem and No black,tarry stools Dante Hematologic: No blood thinners, No blood disorders, No bleeding, No anemia and No blood clots Neuro Neurologic: No numbness, No tingling and No weakness Exam Const General: cooperative, comfortable and no acute distress Orientation: alert, awake and oriented x3 Resp Effort & Inspection: normal respiratory effort GI Inspection: normal to inspection, non-distended and no scars Palpation: soft Other: Bilaterally descended testicles, I do not clearly identify a hernia defect, however, there is some increased fullness on the right versus left and more tenderness with palpation Assessment and Plan Assessment and Plan (1) Inguinal hernia: Status: Acute Comment: Patient is a 43-year-old male who is diagnosed with right inguinal hernia after CT imaging for ER presentation on 11/17/2023 with scrotal discomfort. Patient's reports of discomfort are consistent with the irritation of the iliohypogastric/ilioinguinal nerves. On exam I am unable to confirm a hernia defect and therefore, shared with Mr. Bennett that this could actually represent a cord lipoma rather than a true hernia. Still, I have advised that if this is causing significant discomfort we should proceed with cord exploration and mesh placement (noting that the repair is the same as with a hernia). Mr. Bennett expresses agreement, however, he goes on to relate that he is planning for international travel on a weeklong cruise beginning December 26 and was hoping to schedule this surgery [facility]. It was at this point I related to him that I would not recommend proceeding with surgery before his trip as this would not allow for sufficient time with his activity restrictions (provided he did any lifting of luggage or any other activity on vacation), may incur a risk for DVT, and may incur an increased risk for wound infection if he decided to swim and the wounds were not fully healed. Mr. Bennett appears to acknowledge agreement and shares regrettably that he is not sure he will be out of range leave from work as he is presently on leave. On hearing this, I tried to encourage him that the risk for an incarceration event should be minimal based on his generally asymptomatic status and the possibility that this even just represents a symptomatic cord lipoma. Additionally, I suggested that he could obtain a hernia belt to try to mitigate his experience of his symptoms. I stressed that this belt needed to be applied first thing in the morning and should be fit to his proportions. Plan: ? Recommend elective right, possible bilateral robotic assisted inguinal hernia repair with mesh placement ? Patient provided information on obtaining a tailored hernia truss through local home health services ? MRSA swab of the nares today (2) Umbilical hernia: Status: Acute Comment: Patient asymptomatic with incidental umbilical hernia measuring just over 1 cm in diameter. There are no hernia contents on exam. Patient is nontender. Discussed either watchful waiting or primary repair with suture at the time of the procedure?do not believe this merits repair with mesh. Patient undecided as to which course he would like to take at this juncture. Plan: ? Await patient decision of watchful waiting versus primary repair at time of surgery I have examined the patient the following changes are noted: Patient denies any symptoms from his hernias over the past month and a half. He confirms he is prepared to take on the activity restrictions requested. However, when it comes to discussing the procedure he shares that he was initially under the impression that he was here today for a umbilical hernia repair (after I question whether or not he would like to add this to his inguinal hernia repair). After this was clarified Mr. Bennett declines proceeding with any umbilical hernia repairs today and wishes to only address his inguinal hernia on the right (and bilateral if encountered intraoperatively). Fortunately this was reflected in the consent signed but I did review the terms of the consent, specifically, to confirm informed understanding. Will now proceed to the operating room for robot-assisted right possible bilateral inguinal hernia repair with mesh placement.
--- NOTE | 2024-01-20 07:07 | PCM.PRE.AN2 ---
ASA Classification* ASA Classification ASA Classification: 3 Assessment & Plan Anesthesia* Anesthesia Assessment Anesthesia Assessment: Discussed sedation and/or anesthesia options, risks, benefits, and alternatives with patient/parents/legal guardian/POA. Questions invited. The patient/parents/legal guardian/POA seems to understand and agrees to proceed with anesthesia plan. Reviewed the physical assessment, medical history, allergy history and patient home medications list prior to surgery/procedure/anesthetic and documented any changes. Performed airway and anesthesia risk assessments. Anesthesia Type Anesthesia Type: General Anesthesia Focused Assessment* Temperature: 97.2 F Pulse Rate: 75 Blood Pressure: 150/96 Respiratory Rate: 16 Pulse Ox: 98 Airway Assessment Mouth opens: >3 cm Mallampati Score: II Focused Labs Anesthesia Preop lab: CBC WBC 10.3 K/mm3 (4.4-11.0) 04/14/18 19:43 RBC 5.31 M/mm3 (4.6-6.2) 04/14/18 19:43 Hgb 15.1 g/dl (13.0-16.5) 04/14/18 19:43 Hct 46.0 % (40-54) 04/14/18 19:43 Plt Count 285 K/mm3 (150-450) 04/14/18 19:43 CHEMISTRY Potassium 3.8 mmol/L (3.5-5.1) 04/14/18 19:43 Sodium 140 mmol/L (136-145) 04/14/18 19:43 BUN 10 mg/dL (7-18) 04/14/18 19:43 Creatinine 1.12 mg/dL (0.70-1.30) 04/14/18 19:43 Glucose 127 mg/dL (74-106) H 04/14/18 19:43 COAG Pre-Assessment Diagnosis/Proposed Procedure Planned Operative Procedure(s): (R) Lap Robotic RIH poss bilateral w/mesh Anesthesia History Anesthesia History - technology administrator: Anesthesia History - technology administrator Hx Hospitalization No 01/08/24 12:02 Any Problems With Anesthesia No 01/08/24 12:02 Cholinesterase deficiency No 01/08/24 12:02 You/Your Family Experience No 01/08/24 12:02 fever (hyperthermia) with Relationship Recent Exposure to Contagious No 01/20/24 06:13 Disease Does patient have nerve No 01/08/24 12:02 stimulator Patient instructed to have device shut off --Does patient have Pacemaker No 01/20/24 06:13 or ICD? When Was Last Pacemaker Check QUESTION #4 FULL TEXT: You/Your Family Experience fever (hyperthermia) with Anesthesia Last Oral Intake Last Oral intake: Last Oral Intake NPO since 00:00 01/20/24 06:13 Meds taken in AM with sips of No 01/20/24 06:13 water? Meds patient instructed to take am of surgery PONV PONV - technology administrator: PONV - technology administrator Female No 01/08/24 12:02 HX of Motion Sickness No 01/08/24 12:02 HX of N/V After Surgery No 01/08/24 12:02 Non-Smoker No 01/08/24 12:02 Duration of Surgery greater Yes 01/08/24 12:02 than 60 minutes Number of Risk Factors 1 01/08/24 12:02 PONV Score Low Risk 01/08/24 12:02 Height & Weight Height & Weight: Anesthesia: Height & Weight Height 6 ft 01/20/24 06:13 Weight: 117.48 kg 01/20/24 06:13 Body Mass Index (BMI) 35.1 01/20/24 06:13 Respiratory Assessment Respiratory Assessment - technology administrator: Respiratory Tract Infection Hx - technology administrator Hx Respiratory Tract Infection No 01/08/24 12:02 STOP Sleep Apnea STOP Sleep Apnea - technology administrator: STOP Sleep Apnea - technology administrator Hx Hypertension No 01/08/24 12:02 Hx Sleep Apnea Yes 01/08/24 12:02 CPAP No 01/08/24 12:02 BIPAP Yes 01/08/24 12:02 Do you snore loudly (louder than talking or can be heard Do you often feel tired/ fatigued/ sleepy during daytime? Has anyone observed you stop breathing during sleep? STOP Results Positive 01/08/24 12:02 QUESTION #5 FULL TEXT : Do you snore loudly (louder than talking or can be heard through closed doors)? Tobacco Use History Tobacco Use History - technology administrator: Tobacco Use History - technology administrator Tobacco Use Smoking Status Current every day smoker 01/08/24 12:02 Hx Tobacco Use No 01/08/24 12:02 Years Smoking Packs Smoked per Day Smoking Cessation Date was within the last 15 years Hx Smoking Cessation Date Hx Smoking Cessation Counseling Hematologic Medial History Hematologic Hx - technology administrator: Hematologic Medical Hx - private investigator surveillance Hx of Blood Transfusion No 01/08/24 12:02 Hx of Transfusion in last 3 No 01/08/24 12:02 Months Date of Last Transfusion (if within last 3 months) Ever experience any problems No 01/08/24 12:02 with transfusion(s)? Specify any problems Hx of Preganancy in last 3 N/A 01/08/24 12:02 Months Nurse Filling Out Transfusion NBUCHER 01/08/24 12:02 & Questions: Date: 01/08/24 01/08/24 12:02 Time: 12:03 01/08/24 12:02 Patient unable to answer at this time (ie. confused, unrespo /Reproduction History /Reproductive History - technology administrator: /Reproductive Hx- technology administrator Hx Now No 01/08/24 12:02 Gestational Age (in weeks): EDC: Hx Hx Para Hx Section SAB No 01/08/24 12:02 Active Medications Active Medications: Current Medications Generic Name Dose Route Start Last Admin Trade Name Freq PRN Reason Stop Dose Admin Cefazolin Sodium 2 gm/ N/A 20 mls @ 400 mls/hr 01/20/24 07:30 IV 01/20/24 07:32 PREOP ONE Lactated Ringer's 1,000 mls @ 15 mls/hr 01/20/24 06:15 01/20/24 06:32 IV 01/25/24 19:34 15 mls/hr .Q48H BRENDEN Administration Protocol [facility] Medical History MRSA (methicillin resistant staph aureus) culture positive Loss of hearing Wears hearing aid Marijuana use Arthritis Electronic cigarette use Leg cramps Smoker Umbilical hernia Inguinal hernia Home Medications ?Medication ?Instructions ?Recorded ?Last Taken ?Type chlorhexidine gluconate 4 % 1 applic topical ONCE #473 mL 11/27/23 Unknown Rx topical liquid (Hibiclens) mupirocin 2 % topical ointment 1 applic topical BID #15 grams 11/27/23 Unknown Rx Allergy/AdvReac Type Severity Reaction Status Date / Time varenicline tartrate (From Allergy SUICIDAL Verified 11/06/24 11:59 Chantix) THOUGHTS Surgical History History of clubfoot correction History of throat surgery History of ankle surgery H/O vasectomy Social History Smoking Status: Current every day smoker tobacco type: e-cigarettes alcohol intake: current alcohol intake frequency: holidays/special occasions only substance use type: does not use Review of Systems (Anesthesia) ROS Narrative System reviewed and no additional complaints, except as documented.
[2024-01-20] MEDS: Cefazolin 2 GM in Syringe IV (07:29)
--- NOTE | 2024-01-20 10:12 | PCM.OPRPT ---
Operative Report (Standard) Operative Information Surgery/Procedure Performed: Robot-assisted transabdominal preperitoneal right inguinal hernia repair with mesh Surgeon: Raul Millan Date of Procedure: 01/20/24 Procedure Start Time: 07:59 Procedure Stop Time: 10:18 Pre-Operative Diagnosis: Right inguinal hernia Post-Operative Diagnosis: Indirect inguinal hernia Select all DRAINS/GRAFTS/IMPLANTS that apply: Implanted device (3D max mid anatomic-large) Implanted device details: Lot [id number], reference [id number] Type of Anesthesia: General/Supplemental Estimated Blood Loss: 10 Specimen collected: Yes Description of specimen(s) removed: Cord lipoma Description of surgery: After appropriate identification in the preoperative holding area the patient was brought to the operating room where he was positioned supine on the operating table. Preoperative antibiotics were completed and the patient was administered a general anesthetic. Patient's abdomen was then prepped and draped in usual sterile fashion. Formal timeout followed to confirm patient and procedure. Procedure was begun with an optical entry facilitated by Veress insufflation at Coon's point. Once pneumoperitoneum reached a set point pressure of 15 mmHg the Veress needle was withdrawn and an optical entry was made with a robotic trocar through that incision site. Laparoscopic visualization confirmed no inadvertent injury to the viscera below and 2 additional ports were placed in the right upper quadrant and paramedian positions, respectively, after instillation of local anesthetic. It was readily noted during this port placement that patient had a number of adhesions between the omentum of the gastrocolic ligament and the anterior abdominal wall. Patient was positioned in slight Trendelenburg and I performed a local block of the right ilioinguinal nerve using 6 mL local anesthetic under laparoscopic visualization. The robot was docked in standard fashion. In this positioning I could visualize a indirect abdominal wall defect. Robotically, a peritoneal flap was created on the right extending from the medial umbilical ligament to the level of the ASIS (external) and was bluntly dissected to expose the medial parietal compartment and lateral visceral compartments. Medially I could visualize the pubic tubercle and Ji's ligament while laterally I extended the dissection down to the level of the ASIS and then beyond over the psoas tendon. The small indirect hernia sac was identified and from the cord structures deeply with selective use of monopolar energy. A medium cord lipoma was identified and removed with monopolar energy. Beyond this, I did not visualize a direct or femoral defect but I could visualize the medial aspect of the femoral vein. The peritoneal flap was inspected to ensure that cord was appropriately parietalized and there was no pulling of the cord structures or the viscera deeply over the psoas using the pull test. Once satisfied, a Bard 3D max, size large, mid weight mesh was placed into the abdomen along with suture. It was positioned within the preperitoneal pocket so that there was good medial and inferior overlap. It was then tacked to Ji's ligament adjacent the pubic tubercle and laterally in a partial-thickness bite of the abdominal wall using a 3-0 Vicryl suture. The peritoneal flap was then closed with a running 3-0 V-Loc suture taking care to conceal the barbs of the suture beneath the peritoneum. Unfortunately the peritoneum proved to be very attenuated and tore easily during this closure process. Therefore, I sought additional tissue locally that could be pulled over as a lap for additional coverage of the mesh. The medial umbilical fold on the right was somewhat redundant and fatty and served this purpose. A running suture with 3-0 Vicryl followed by running 3-0 V-Loc suture was used to approximate the medial umbilical fold over the rent in the peritoneum. With the peritoneal defects closed, sutures were systematically removed from the peritoneum with the right sided cord lipoma which was placed in an Endo Catch bag and the pneumoperitoneum was evacuated before removing the trocars. The port sites were closed at the skin with running 4-0 Monocryl in a subcuticular fashion. Additional local anesthetic was infiltrated for a total volume of 30 mL quarter percent bupivacaine. Steri-Strips and OpSite's were used as dressings. Patient's testicles were found within the scrotum. Patient was then awoken from anesthetic and transferred to PACU for ongoing recovery. Surgical Findings: ? Evidence of numerous adhesions between the omentum and the left upper quadrant intra-abdominal wall seemingly from the gastrocolic ligament to the anterior abdominal wall without apparent cause ? Small indirect?type right inguinal hernia without hernia contents and associated medium?sized cord lipoma Rn Radiology supplies packer: Yes Heater Tender: Nuvia Quiles Tasks completed by business development assistant: Opening & closing, Insert Trochanter and Other (Insertion and retrieval of the suture ) Complications Complications: No Admit VTE Documentation VTE Mechan Device Prophylaxis: SCD's Procedures Digestive 40xxx-49xxx: 87113 Lap ing hernia repair init
[2024-01-20] MEDS: Bupivacaine 0.25% 30 ML Vial (10:16)
--- NOTE | 2024-01-20 10:18 | EX.PCM.DISCH ---
Discharge Instructions Diet Discharge Diet: No restrictions Activity Discharge Activity: May Not Drive (While taking narcotic pain medication) and May Shower May shower in (days): 2 Ice area for (Minutes): 20 Lifting Restrictions: No lifting greater than 10 pounds for the next 5 weeks Dressing / Incision Call your doctor if your incision/area has: Continuous Slow Oozing, Increased Pain/ Swelling, Increased Redness, Foul Smelling Discharge and Swelling at the incision site Call your doctor if you observe: Fever of 101 or Higher, Inability to urinate and Inability to have a bowel movement Change Dressing in: 2 days (Please leave Steri-Strips intact until they fall off spontaneously or are taken off at your follow-up visit) Remove Dressing in: 2 days Cleanse incision/area with: Soap & Water and Keep Dressing Clean & Dry Follow Up Care Please Follow Up With: Raul Millan MD When: 1 week postop Test Results: Test results from this visit will be discussed in further detail at your follow-up appointment, if applicable. Discharge Plan Admission Primary Reason for Your Visit: Repair of right inguinal hernia Attending Provider: Raul Millan Primary Care Provider: Earl Bernal Instructions Print Language: Luxembourgish Discharge Orders/Prescriptions Prescriptions: New oxycodone 5 mg tablet 5 mg PO Q6H PRN (Reason: pain) 3 Days Qty: 10 0RF Continued mupirocin 2 % ointment 1 applic topical BID Qty: 15 0RF Rx Instructions: Apply to qtip into bilateral nares twice daily for one week chlorhexidine gluconate [Hibiclens] 4 % liquid 1 applic topical ONCE Qty: 473 0RF Rx Instructions: shower with once daily for one week Other Ambulatory Orders: 12 Lead EKG (Routine) Timeframe: 20240115 Location: None Selected Ordered By: Dr. Shawn Wallace Referrals / Follow Up: Earl Bernal MD [[facility]] - Disposition Disposition (needs filled in before D/C Order can be placed): Home, Self Care
--- NOTE | 2024-01-20 10:38 | PCM.POST.ANE ---
Anesthesia: Postop Eval I Current Vital Signs Temperature: 98.1 F Pulse Rate: 92 Blood Pressure: 126/81 Respiratory Rate: 16 Pulse Ox: 95 Oxygen Delivery Method: Room Air Assessment Airway patent: Yes Spontaneous unlabored respirations: Yes Mental status: Awake nausea: No Vomiting: No Anesthesia Complication: No Fluid Hydration Crystalloid volume administer (ml): 900 Total IV fluid infused: 900 Progress Note Anesthesia document: Postop Eval 1 completed: Yes
--- NOTE | 2024-01-20 11:12 | POSTOPAN2_ITS ---
Anesthesia Postop Eval I Sum Postop Eval Completion status Anesthesia document: Postop Eval 1 completed: Yes Anesthesia Postop Eval I Summary Anesthesia Postop Eval I Summary: Anesthesia Postop Eval I: Assessment Summary Airway patent Yes 01/20/24 10:39 BOILERMAKER [email or web address] Spontaneous unlabored Yes 01/20/24 10:39 BOILERMAKER [email or web address] respirations Mental status Awake 01/20/24 10:39 BOILERMAKER [email or web address] nausea No 01/20/24 10:39 BOILERMAKER [email or web address].[email or web address] Vomiting No 01/20/24 10:39 BOILERMAKER [email or web address] Anesthesia Postop Eval I: Fluid Summary Crystalloid volume administer 900 01/20/24 10:39 BOILERMAKER [email or web address] (ml) Colloids volume administered ( ml) Blood Product volume administered (ml) Total IV fluid infused 900 01/20/24 10:39 BOILERMAKER [email or web address] Anesthesia Postop Eval I: Summary Notes Anesthesia Complication No 01/20/24 10:39 BOILERMAKER [email or web address] Anesthesia Complication Comment: Post-operative progress note Anesthesia: Postop Eval II Evaluation Mental status: Awake Pain Level: 0 nausea: No Vomiting: No
--- NOTE | 2024-01-20 11:12 | PCM.POSTANE2 ---
Anesthesia Postop Eval I Sum Postop Eval Completion status Anesthesia document: Postop Eval 1 completed: Yes Anesthesia Postop Eval I Summary Anesthesia Postop Eval I Summary: Anesthesia Postop Eval I: Assessment Summary Airway patent Yes 01/20/24 10:39 MANAGER OF [email or web address] Spontaneous unlabored Yes 01/20/24 10:39 MANAGER OF PRODUCTION.JDEF respirations Mental status Awake 01/20/24 10:39 MANAGER OF PRODUCTION.JDEF nausea No 01/20/24 10:39 MANAGER OF PRODUCTION.JDEF Vomiting No 01/20/24 10:39 MANAGER OF [email or web address].JDEF Anesthesia Postop Eval I: Fluid Summary Crystalloid volume administer 900 01/20/24 10:39 MANAGER OF PRODUCTION.JDEF (ml) Colloids volume administered ( ml) Blood Product volume administered (ml) Total IV fluid infused 900 01/20/24 10:39 MANAGER OF PRODUCTION.JDEF Anesthesia Postop Eval I: Summary Notes Anesthesia Complication No 01/20/24 10:39 MANAGER OF PRODUCTION.JDEF Anesthesia Complication Comment: Post-operative progress note Anesthesia: Postop Eval II Evaluation Mental status: Awake Pain Level: 0 nausea: No Vomiting: No
[2024-01-20] MEDS: oxyCODONE 5 MG Tablet PO (12:11)
== END 2024-01-20 14:07 | disposition home or self-care (01) ==
LOC: SDC 05:50 → AC 05:51
PROVIDERS: PCP Family Medicine; Referring Provider Surgery; Visit Provider Surgery
PROC: (CPT 49650; principal; 2024-01-20 07:10)
DX: K40.90 Unilateral inguinal hernia, without obstruction or gangrene, not specified as recurrent (principal); F17.290 Nicotine dependence, other tobacco product, uncomplicated; K42.9 Umbilical hernia without obstruction or gangrene
CPT/HCPCS: 49650; S2900; 00840; 88304; 93005; J7120; J2405; J3490

== ENCOUNTER 2024-04-01 12:00 | Outpatient (RCR) | payer OTHER, MEDICARE, SELFPAY ==
--- NOTE | 2024-02-18 16:33 | HP.PTEVAL ---
Patient's Visit Information Visit Information Visit Information: EBER MICHAEL is a 44 year old M referred to Physical Therapy by MATTY BERGERON with a diagnosis of LBP. Date of Evaluation: 02/18/24 Physical Therapist: Andrei Henriquez PT, ATC Visit Plan Frequency: 2x /Week Duration: 4-6 Weeks Plan: Aquatic therapy consisting or core and abdominal strengthening. Subjective Subjective: DOS: 01/20/24. Pt reports he had an inguinal hernia at the time and had to have it repaired. Pt reports he feels a lot better now unless he twists or bends the wrong way. Pt reports No UE tingling or numbness since having the surgery. 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 Pt reports any forward bending activity increases his pain at this time. Pt is limited to a 10# lifting limit at this time. 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 Pt reports he has had several injuries in the past that he gained while serving in the [employer]. Pt denies sleep difficulty at this time secondary to pain. Pt reports he is limited with most house duties secondary to pain. 4/10 pain in the stomach and LB while sitting here at rest, 9/10 pain at worst Pain Stomach/LBP: Pain Intensity (Out of 10): 4 Pain Intensity Range: 9 Objective Objective: Neuro: B UE and LE sensation is WNL to light touch throughout MMT: Pt is unable to perform a bridge and hold for 10 seconds without visible shaking indicating weak core musculature. Pt is also unable to lif scapulae off table with situps indicating weak abs. ROM: B UE's and LE's are equal when compared bilaterally Goals Goal 1:: Increase abdominal strength to WNL so that patient can perform 5 sit ups in 30 sec. Goal Time Frame: 4-6 Weeks Goal 2:: Pt will perform 10 Bridges in 30 seconds Goal Time Frame: 4-6 Weeks Goal 3:: I with HEP Goal Time Frame: 4-6 Weeks Rehabilitation Potential Physical Therapy Diagnosis: Pt has weak abdominal and core musculature secondary to a repaired hernia Rehabilitation Potential: Excellent Anticipated Interventions Patient/Client Instruction: Educate patient on: Condition and Plan of Care For the Purpose of:: To improve self management Therapeutic Exercise to Include: Strength training, In an aquatic setting and Dynamic Lumbar Stabilization For the Purpose of:: To decrease pain and To improve muscle performance and motor function Text: Thank you for the opportunity to evaluate your patient. For Medicare and Medicare HMO plans, please review the plan of care and approve it. It will need to be FAXED BACK to us at [phone] for Medicare purposes. For Medicare only, by signing this I certify the plan of care. Please let me know if there are questions or concerns regarding this plan of care. Physician Signature: Date:
--- NOTE | 2024-04-01 12:33 | HP.PTDCSUM ---
Discharge Summary D/C summary: It has been my pleasure to treat EBER MICHAEL referred by MATTY BERGERON, with the diagnosis of LBP for a total of 10 visit(s). Discharge Date: Please see the following information for a summary of their discharge status. Subjective Subjective: I feel normal now. I start back to work tomorrow. Pain Stomach/LBP: Pain Intensity (Out of 10): 1 R hip: Pain Intensity (Out of 10): 0 R calf: Pain Intensity (Out of 10): 0 Overall Improvement % Improvement: 100 Objective Objective/Function: LBP/abdominal pain now 0/10 Pt can perform 5 sit ups in 7 seconds Pt can perform 10 bridges in 17 seconds Pt is now I with HEP Goals Goal 1:: Increase abdominal strength to WNL so that patient can perform 5 sit ups in 30 sec. Goal Progress: Goal Met Goal 2:: Pt will perform 10 Bridges in 30 seconds Goal Progress: Goal Met Goal 3:: I with HEP Goal Progress: Goal Met Plan Plan: Discharge D/C Information d/c sentence: If there are questions or concerns regarding this patient's physical therapy, please feel free to call me at [phone]. Thank you for the referral of this patient. Sincerely, Andrei Henriquez, PT, ATC Balance/Gait/Functional tests Balance/Special Test Scores Oswestry Low Back Score: 2 Improvement % Improvement: 100
== END 2024-04-01 19:00 | disposition home or self-care (01) ==
LOC: PT 12:00
PROVIDERS: PCP Family Medicine
DX: G89.29 Other chronic pain (principal); M54.50 Low back pain, unspecified
CPT/HCPCS: 97110; 97113; 97530

== ENCOUNTER 2024-09-25 18:40 | Emergency (ER) | payer MEDICARE, SELFPAY ==
[2024-09-25 18:40] VITALS: BP 191/114; PULSE 83; RESP 16; TEMP 37; O2SAT 98; BMI 36.3
--- NOTE | 2024-09-25 19:11 | EX.ED.VIS.EY ---
HPI History of Present Illness Chief Complaint: Eye Problem Informant: patient Onset/Context/Timing Location: Right Eye Onset: Today Context: Sudden Onset Timing: Continuous Worsened by: Opening his eye Relieved by: Closing his eye Associated Symptoms Associated Symptoms - Eyes: Foreign body sensation, Pain, Photophobia and Redness; Negative for Burning, Crusting, Drainage, Eyelid swelling, Itching or Matting History of injury: Direct trauma Visual correction: None Narrative Narrative: Patient presents with right eye injury that occurred today. Patient states he was in a hurry and accidentally hit himself in the eye with the corner of an envelope. Patient states his right eye is somewhat blurry. Patient admits to a foreign body sensation in his right eye. Patient admits to some redness and photophobia. Patient states his pain is worse when he opens his eye and better when he closes his eye. Patient does not wear glasses or contacts. Patient denies any discharge or drainage. Patient denies any matting or crusting. [facility] Medical History MRSA (methicillin resistant staph aureus) culture positive Loss of hearing Wears hearing aid Marijuana use Arthritis Electronic cigarette use Leg cramps Smoker Umbilical hernia Inguinal hernia Home Medications Medication Instructions Recorded Last Taken Type NK 02/24/24 Unknown History Allergy/AdvReac Type Severity Reaction Status Date / Time varenicline tartrate (From Allergy SUICIDAL Verified 09/25/24 18:41 Chantix) THOUGHTS Surgical History S/P right inguinal hernia repair History of clubfoot correction History of throat surgery History of ankle surgery H/O vasectomy Social History Smoking Status: Current every day smoker tobacco type: e-cigarettes alcohol intake: current alcohol intake frequency: holidays/special occasions only substance use type: does not use ROS ROS ED Constitutional Constitutional ED: Denies chills or fever(s) Eyes Eyes: Reports blurry vision; Denies diplopia ENT ENT ED: Denies rhinorrhea or sore throat Cardiovascular Cardiovascular: Denies chest pain or palpitations Respiratory/Chest Respiratory/Chest: Denies cough or dyspnea Gastrointestinal Gastrointestinal: Denies nausea or vomiting Genitourinary Genitourinary ED: Denies dysuria or hematuria Musculoskeletal Musculoskeletal: Reports back pain; Denies neck pain Integumentary Denies abscess or rash Neurologic Neurologic: Denies headache(s) or weakness Allergic/Immunologic Allergic/Immunologic ED: Denies mouth swelling or urticaria EXAM Physical Exam Const Vital Signs: 09/25/24 18:40 Temperature 98.6 F Temperature Source Oral Pulse Rate 83 Respiratory Rate 16 Blood Pressure 191/114 H Blood Pressure Mean 139 Pulse Ox 98 Oxygen Delivery Method Room Air Positive well nourished and well developed General Appearance ED: well developed and NAD HEENT atraumatic Eyes Eyes Narrative: Pupils are equal, round, and reactive to light bilaterally. Extraocular muscles are intact. Conjunctiva was injected on the right. Visual acuity was 20/25 in the right eye, 20/25 in the left eye, and 20/25 with both eyes. Neck supple and no JVD Neuro oriented x3, CN's II-XII intact bilaterally, moves all extremities and no sensory deficits noted Sensorium / Orientation: alert Motor Exam: strength 5/5 throughout MDM MDM MDM Narrative Medical decision making narrative: Tetracaine and fluorescein dye was applied. There is a large central corneal abrasion over the right cornea. Anterior chamber was clear. There is no hyphema. There is no cell or flare. Patient was given erythromycin ophthalmic ointment to his right eye. Patient was instructed to apply this 4 times daily. Patient was instructed to follow-up with his primary care physician in 2 to 3 days for reevaluation. Patient was instructed to return if worse in any way. Patient understood and was agreeable with the plan. All questions were answered. Discharge Plan Triage Chief Complaint: Eye Problem ED Provider: Elian Edgar Dx/Rx/DC Orders Clinical Impression: Corneal abrasion, right, Elevated blood pressure reading Instructions: ED Corneal Abrasion Prescriptions: No Action NK Primary Care Provider: Earl Bernal Referrals: Earl Bernal MD [Primary Care Provider] - 2 Days Print Language: Frisian Disposition Disposition: Home, Self Care Discharge Date/Time: 09/25/24 20:38
[2024-09-25] MEDS: Tetracaine 0.5% Ophthalmic Bottle 1 DRP OPHTHALMIC (19:18)
[2024-09-25] MEDS: Erythromycin Ophthalmic (NSY) 1 GM OPTH.TUBE 1 APPLIC RIGHT EYE (20:31)
[2024-09-25 20:33] VITALS: BP 179/80; PULSE 88; RESP 18; TEMP 37.1; O2SAT 99
== END 2024-09-25 20:38 | disposition home or self-care (01) ==
PROVIDERS: Emergency Provider Emergency Medicine; PCP Family Medicine; Visit Provider Emergency Medicine
DX: S05.01XA Injury of conjunctiva and corneal abrasion without foreign body, right eye, initial encounter (principal); R03.0 Elevated blood-pressure reading, without diagnosis of hypertension; F17.290 Nicotine dependence, other tobacco product, uncomplicated; W22.8XXA Striking against or struck by other objects, initial encounter
CPT/HCPCS: 99283